=== PATIENT | male | born 1980 | race Caucasian/White ===

== ENCOUNTER 2019-05-20 16:18 | Emergency (ER) | payer BC ==
[2019-05-20] MEDS ORDERED: Metoclopramide IV* 5 MG/ML 2 ML VIAL IV ONE (17:10)
[2019-05-20] MEDS ORDERED: NS 0.9% 1000 ML** 1,000 ML IV ONE (17:10)
[2019-05-20] MEDS ORDERED: Ketorolac INJ* 30 MG/ML 1 ML VIAL IV PUSH ONE (17:10)
[2019-05-20] MEDS ORDERED: diPHENhydraMINE IV* 50 MG/ML 1 ml VIAL (BENADRYL) IV ONE (17:10)
--- NOTE | 2019-05-20 17:38 | ED ---
Headache - HPI Summary HPI Summary: This patient is a 38 year old male presenting to [facility] with a chief complaint of migraine headache since 3 days ago. He states he has had headaches in the left temporal area along with photophobia since he was a child, however the last time it lasted this long he had the flu. He reports photophobia. He states he has taken Excedrin, Dayquil, and sinus medication to no relief. - History Of Current Complaint Chief Complaint: EDHeadache Stated Complaint: STOMACH PAIN AND BAD HEADACHE Time Seen by Provider: 05/20/19 16:58 Hx Obtained From: Patient Character: Sharp Location of Headache: Temporal - Allergies/Home Medications Allergies/Adverse Reactions: Allergies Allergy/AdvReac Type Severity Reaction Status Date / Time No Known Allergies Allergy Verified 08/22/13 08:37 PMH/Surg Hx/FS Hx/Imm Hx Cardiovascular History: Denies: Hx Coronary Artery Disease Sensory History: Denies: Hx Cataracts - Immunization History Date of Tetanus Vaccine: up to date Date of Influenza Vaccine: never Infectious Disease History: No Infectious Disease History: Denies: Traveled Outside the [place] in Last 30 Days - Family History Known Family History: Negative: Cardiac Disease - Social History Alcohol Use: Occasionally Substance Use Type: Reports: None Smoking Status (MU): Never Smoked Tobacco Review of Systems Positive: Photophobia Positive: Nausea Positive: Headache All Other Systems Reviewed And Are Negative: Yes Physical Exam - Summary Physical Exam Summary: Appearance: The patient is well-nourished in no acute distress and in no acute pain. Skin: The skin is warm and dry, and skin color reflects adequate perfusion. HEENT: The head is normocephalic and atraumatic. The pupils are equal and reactive. The conjunctivae are clear and without drainage. Nares are patent and without drainage. Mouth reveals moist mucous membranes, and the throat is without erythema and exudate. The external ears are intact. The ear canals are patent and without drainage. The tympanic membranes are intact. Neck: The neck is supple with full range of motion and non-tender. There are no carotid bruits. There is no neck vein distension. Respiratory: Chest is non-tender. Lungs are clear to auscultation and breath sounds are symmetrical and equal. Cardiovascular: Heart is regular rate and rhythm. There is no murmur or rub auscultated. There is no peripheral edema and pulses are symmetrical and equal. Abdomen: The abdomen is soft and non-tender. There are normal bowel sounds heard in all four quadrants and there is no organomegaly palpated. Musculoskeletal: There is no back tenderness noted. Extremities are non-tender with full range of motion. There is good capillary refill. There is no peripheral edema or calf tenderness elicited. Neurological: Patient is alert and oriented to person, place and time. The patient has symmetrical motor strength in all four extremities. Cranial nerves are grossly intact. Deep tendon reflexes are symmetrical and equal in all four extremities. Psychiatric: The patient has an appropriate affect and does not exhibit any anxiety or depression. Triage Information Reviewed: Yes Vital Signs On Initial Exam: Initial Vitals Temp Pulse Resp BP Pulse Ox 98.0 F 87 19 137/96 100 05/20/19 16:19 05/20/19 16:19 05/20/19 16:19 05/20/19 16:19 05/20/19 16:19 Vital Signs Reviewed: Yes Procedures - Sedation Patient Received Moderate/Deep Sedation with Procedure: No Diagnostics - Vital Signs Vital Signs Temp Pulse Resp BP Pulse Ox 05/20/19 17:18 91 131/79 99 05/20/19 16:19 98.0 F 87 19 137/96 100 - Laboratory Lab Statement: Any lab studies that have been ordered have been reviewed, and results considered in the medical decision making process. Headache Course/Dx - Course Course Of Treatment: Mr. West has been suffering from headaches since he was an adolescent. He's never really gone and gotten a diagnosis. But the headaches are always on the left side and associated with photophobia. He comes in today because his normal [id number] medications have not helped his had a headache for 3 days. He was nontoxic in appearance with stable vitals and no evidence for meningismus. He was hydrated and given a migraine cocktail of ketorolac, diphenhydramine and metoclopramide with significant relief of his headache. - Diagnoses Provider Diagnoses: Headache Discharge ED - Sign-Out/Discharge Documenting (check all that apply): Patient Departure - Discharge - Discharge Plan Condition: Stable Disposition: HOME Patient Education Materials: Migraine Headache (ED) Referrals: No Primary Care Phys,NOPCP [Primary Care Provider] - Additional Instructions: Return to ED with new or worsening symptoms. - Billing Disposition and Condition Condition: STABLE Disposition: Home - Attestation Statements Document Initiated by Lisae: Yes Documenting Scribe: Sahil Sawyer Provider For Whom Scribe is Documenting (Include Credential): Johan Watts MD Scribe Attestation: I, Sahil Sawyer, scribed for Johan Watts MD on 05/20/19 at 2101. Scribe Documentation Reviewed: Yes Provider Attestation: The documentation as recorded by the scribe, Sahil Sawyer accurately reflects the service I personally performed and the decisions made by me, Johan Watts MD Status of Scribe Document: Viewed
[2019-05-20 19:22] VITALS: BP 111/60
== END 2019-05-20 19:23 | disposition home or self-care (01) ==
LOC: ED 16:18
DX: R51 Headache (principal); H53.149 Visual discomfort, unspecified; R11.0 Nausea
CPT/HCPCS: 96361; 96374; 96375; 99282; J1200; J1885; J2765